=== PATIENT | male | born 1940 | race Caucasian/White ===

== ENCOUNTER 2020-06-27 07:37 | Emergency (ER) | payer MEDICARE ==
[2020-06-27 08:23] LABS: BILIRUBIN NEGATIVE (NEGATIVE); BLOOD 3+ Ery/uL (NEGATIVE); CLARITY CLEAR (CLEAR); COLOR YELLOW (YELLOW); GLUCOSE (U) NORMAL (NORMAL); LEUKOCYTES 1+ Leu/uL (NEGATIVE); NITRITE NEGATIVE (NEGATIVE); PROTEIN NEGATIVE (NEGATIVE); SPECIFIC GRAVITY 1.015 (1.001-1.030); UROBILINOGEN 0.2 mg/dL (0.2-1.0); pH 7.5 (5.0-9.0)
[2020-06-27 08:30] LABS: BACTERIA TRACE; URINARY RBC TNTC
[2020-06-27 08:44] LABS: BASOPHIL 0.5 % (0-2); EOSINOPHIL 1.4 % (0-7); HCT 47.5 % (42.0-52.0); HGB 15.5 g/dl (13.2-18.0); LYMPHOCYTE 23.7 % (15-48); MCH 33.3 pg (25.0-31.0); MCHC 32.6 g/dL (32.0-36.0); MCV 102.2 fL (78.0-100.0); MONOCYTE 6.2 % (0-12); MPV 10.7 fL (6.0-9.5); NEUTROPHIL 67.1 % (41-80); NRBC 0; PLT 184 K/uL (150-400); RBC 4.65 M/uL (4.70-6.00); RDW 17.6 % (11.5-14.0); WBC 12.3 K/uL (4.0-10.5)
[2020-06-27 09:06] LABS: ALBUMIN 3.1 g/dL (3.4-5.0); BUN/CREAT RATIO (CALC) 28.1 RATIO; CREATININE 1.35 mg/dL (0.67-1.17); GLOBULIN (CALCULATION) 3.7 g/dL; POTASSIUM 4.3 mmol/L (3.5-5.1); TOTAL PROTEIN 6.8 g/dL (6.4-8.2)
[2020-06-27] MEDS ORDERED: AUGMENTIN 875-1 EACH PO (14:26)
== END 2020-06-27 15:49 | disposition home or self-care (01) ==
LOC: FER 07:37
PROVIDERS: Emergency Medicine
DX: N39.0 Urinary tract infection, site not specified (principal); R31.9 Hematuria, unspecified; J18.9 Pneumonia, unspecified organism; I48.91 Unspecified atrial fibrillation; I12.9 Hypertensive chronic kidney disease with stage 1 through stage 4 chronic kidney disease, or unspecified chronic kidney disease; N18.9 Chronic kidney disease, unspecified; Z86.14 Personal history of Methicillin resistant Staphylococcus aureus infection
CPT/HCPCS: 36415; 71101; 80053; 81001; 83690; 85025; 87076; 87088; 87186; J0696